=== PATIENT | female | born 1960 | race Caucasian/White ===

== ENCOUNTER 2021-08-04 10:29 | Emergency (ER) | payer SELFPAY ==
--- NOTE | 2021-08-04 10:38 | XR_ITS ---
PROCEDURE INFORMATION: Exam: XR Chest Exam date and time: 08/04/2021 10:38 AM Age: 61 years old Clinical indication: Pain; Chest pressure; Additional info: Pain in right side of chest and lung TECHNIQUE: Imaging protocol: XR of the chest. Views: 2 views. COMPARISON: No relevant prior studies available. FINDINGS: Lungs: No focal airspace disease. Pleural spaces: Unremarkable. No pleural effusion. No pneumothorax. Heart/Mediastinum: Cardiomediastinal silhouette is within normal limits. Bones/joints: Unremarkable. Organs: Cholecystectomy clips. IMPRESSION: No acute cardiopulmonary abnormality.
[2021-08-04 11:45] VITALS: BP 136/95; PULSE 93; RESP 18; TEMP 36.9; O2SAT 98; BMI 25.4
--- NOTE | 2021-08-04 12:16 | HMH.EDUTC ---
[facility] Disposition Clinical Impression: Pleurisy Disposition: Home, Self-Care Condition on Discharge: Good Instructions: Pleurisy, DI for Pleurisy Additional Instructions: Drink plenty of fluids. Take tylenol or ibuprofen for pain or fever. Take the medications as directed. Follow up with your regular doctor. GO TO THE ER FOR ANY WORSENING SYMPTOMS Don't start the oral steroids until tomorrow, since you had the shot here today. Prescriptions: methylPREDNISolone [Medrol] 4 mg PO DIRECTED 6 Days #21 packet Transmission Status: Received by [facility] Azithromycin [Z-Jamie 250mg Tab*] 250 mg PO UD DOSE PK #6 tab Transmission Status: Received by [facility] Referrals: Delgado Eisenberg MD [Primary Care Provider] - Time of Disposition: 12:56 Medical Decision Making - Medical Records Medical records reviewed: No: I reviewed the patient's medical records. - Reynaldo Inquiry Pt receiving controlled substance: No Vital Signs: 08/04/21 11:45 08/04/21 13:00 Temperature 98.4 F 98.4 F Temperature Source Oral Pulse Rate 93 H Pulse Rate [Left] 93 H Respiratory Rate 18 18 Blood Pressure 136/95 H Blood Pressure [Right Arm] 136/95 H Blood Pressure Mean [Right Arm] 108 02 Sat by Pulse Oximetry 98 Orders (Tests/Meds): ED MEDICATIONS Discontinued Medications Generic Name Dose Route Start Last Admin Trade Name Yandelq PRN Reason Stop Dose Admin Ketorolac Tromethamine 60 mg 08/04/21 12:32 08/04/21 12:41 Ketorolac 60mg/2ml Vial IM 08/04/21 12:33 60 mg ONCE ONE Administration Methylprednisolone Sodium Succinate 125 mg 08/04/21 12:32 08/04/21 12:40 Methylprednisolone Sod Succ 125mg Vial IM 08/04/21 12:33 125 mg ONCE ONE Administration [facility] HPI - General Stated complaint: rt lung pain Time Seen by Provider: 08/04/21 12:16 Mode of Arrival: Ambulatory Source of Information: Patient Limitations: No Limitations Description of Symptoms (Recalled from Triage Doc. by RN): pt c/o feels like pleurisy in my R lung. ongoing since yesterday. HEENT Symptoms (Recalled from RN notes): No Resp Symptoms (Recalled from RN notes): Yes Skin Symptoms (Recalled from RN notes): No MS Symptoms (Recalled from RN notes): No Functional Status (Recalled from RN notes): wnl - History of Present Illness Provider Complaint: She states that she has been having pain of the lower part of the right side of her chest when she breathes deep. - Related Data Home Medications Medication Instructions Recorded Confirmed estradiol 1 mg tablet 1 mg PO DAILY 08/14/19 08/14/19 fluoxetine 10 mg capsule 10 mg PO DAILY 08/14/19 08/14/19 levothyroxine 50 mcg capsule 50 mcg PO DAILY 08/14/19 08/14/19 Previous Rx's Medication Instructions Recorded Azithromycin [Z-Jamie 250mg Tab*] 250 mg PO UD DOSE PK #6 tab 08/04/21 methylPREDNISolone [Medrol] 4 mg PO DIRECTED 6 Days #21 08/04/21 packet Allergies Allergy/AdvReac Type Severity Reaction Status Date / Time MORPHINE Allergy Unknown NA-NAUSEA/V Uncoded 05/26/17 15:23 OMITING - Worker's Comp Is this a Worker's Comp case?: No [facility] History - Hepatitis A Screen Drug use history?: No High risk sexual behaviors?: No History of sexually transmitted infection?: No Currently employed?: No Childcare worker?: No Do you have indoor plumbing?: Yes Do you have electricity?: Yes Attestation statement:: This patient has been screened for Hepatitis A risk factors. I have reviewed the patient's past medical history: Yes Medical History: Reports:: Depression, Migraine Other Medical History: Reports: Thyroid Disease Other Surgeries: Yes: Cholecystectomy, Colonoscopy, Hysterectomy-Total Comment: I & D of facial abscess - Social History Smoking Status: Never smoker Alcohol Intake: never Substance Use Type: denies use Occupational Status: employed Housing: house Household Members: family - Psychiatric History
[2021-08-04 13:00] VITALS: BP 136/95; PULSE 93; RESP 18; TEMP 36.9
== END 2021-08-04 13:01 | disposition home or self-care (01) ==
PROVIDERS: Emergency Provider Nurse Practitioner Family; PCP Family Medicine
DX: R09.1 Pleurisy (principal); F33.1 Major depressive disorder, recurrent, moderate; Z79.899 Other long term (current) drug therapy
CPT/HCPCS: 71046; 96372; 99202; 99212; 99213; G0463

== ENCOUNTER → 2023-05-25 10:55 | Outpatient (CLI) | payer MEDICARE, SELFPAY ==
--- NOTE | 2023-05-25 11:07 | XR_ITS ---
FINAL REPORT CLINICAL HISTORY: BRONCHITIS COMPARISON: 08/04/2021 FINDINGS: 2 views of the chest were obtained . The heart is normal in size. The mediastinum is within normal limits. The lungs are clear. There is no pneumothorax. Osseous structures are unremarkable. IMPRESSION: No acute cardiopulmonary process. Reviewed, Interpreted and Dictated by Johnny Cee MD Transcribed by Kristie Branch Authenticated and . [facility]
== END ==
PROVIDERS: PCP Family Medicine; Visit Provider Nurse Practitioner Family
DX: J40 Bronchitis, not specified as acute or chronic (principal)
CPT/HCPCS: 71046

== ENCOUNTER 2023-06-25 19:55 | Outpatient (CLI) | payer MEDICARE, SELFPAY | END 2023-06-25 23:59 | LOC: LAB.DROPOF 19:56 | PROVIDERS: PCP Student in an Organized Health Care Education/Training Program; Visit Provider Student in an Organized Health Care Education/Training Program | DX: N39.0 Urinary tract infection, site not specified (principal); B96.1 Klebsiella pneumoniae [K. pneumoniae] as the cause of diseases classified elsewhere; B95.2 Enterococcus as the cause of diseases classified elsewhere | CPT/HCPCS: 87086 ==

== ENCOUNTER 2023-07-02 21:00 | Outpatient (CLI) | payer MEDICARE, SELFPAY ==
[2023-07-02 19:21] LABS: Basophils # 0.1 K/mm3 (0-0.2); Basophils % 1.3 % (0.1-2.0); Eosinophils # 0.3 K/mm3 (0.0-0.4); Hematocrit 40.2 % (37.0-47.0); Hemoglobin 13.4 g/dL (12.2-16.2); Lymphocytes # 1.8 K/mm3 (0.7-4.5); Lymphocytes % 21.5 % (10-50); Mean Corpuscular HGB Conc 33.3 g/dL (31.8-35.4); Mean Corpuscular Hemoglobin 30.8 pg (27.0-31.2); Mean Corpuscular Volume 92.7 fl (81-99); Mean Platelet Volume 8.9 fl (7.4-10.4); Monocytes # 0.4 K/mm3 (0.1-1.0); Monocytes % 4.6 % (1.7-9.3); Neutrophils # 5.7 K/mm3 (1.8-7.8); Neutrophils % 69.6 % (37.0-80.0); Platelet Count 307 K/mm3 (142-424); Red Blood Count 4.34 M/mm3 (4.20-5.40); Red Cell Distribution Width 13.1 % (11.5-17.5); White Blood Count 8.2 K/mm3 (4.8-10.8)
[2023-07-02 19:48] LABS: Chloride 106 mmol/L (98-107)
[2023-07-02 19:49] LABS: Potassium 4.1 mmoL/L (3.5-5.1); Sodium 135 mmol/L (136-145)
[2023-07-02 19:51] LABS: Alanine Aminotransferase 26 U/L (12-78); Albumin Level 3.8 g/dl (3.5-5.0); Alkaline Phosphatase 83 U/L (38-126); Aspartate Amino Transferase 37 U/L (14-36); Bilirubin,Total 0.6 mg/dl (0.2-1.3); Blood Urea Nitrogen 11 mg/dl (7-17); Estimated Glomerular Filt Rate 84 ml/min (>60); GFR (African American) 102 ML/MIN (>60); Globulin 2.9 g/dL (1.3-3.2); Total Protein,Serum 6.7 g/dl (6.3-8.2)
[2023-07-02 19:52] LABS: Albumin/Globulin Ratio 1.3 (1.1-1.8); Anion Gap 10.1 mEq/L (5-15); Calcium 9.3 mg/dl (8.4-10.2); Carbon Dioxide 23 mmol/L (22.0-30.0); Chol/HDL Ratio 3.9 (1-3.5); Cholesterol 232 mg/dl (140-200); Glucose 108 mg/dl (74-100); HDL Cholesterol 60 mg/dl (40-60); Triglycerides 317 mg/dl (30-150); VLDL Cholesterol 63 mg/dL (0-40)
[2023-07-02 20:05] LABS: Hemoglobin A1C 5.5 % (4.0-6.0)
[2023-07-02 20:06] LABS: Direct LDL Cholesterol 104.12 mg/dL (100-129)
[2023-07-02 20:11] LABS: 25-OH Vitamin D, Total 15.3 ng/mL (30-100)
[2023-07-02 20:24] LABS: Thyroid Stimulating Hormone 3.01 uIU/mL (0.465-4.68)
== END 2023-07-02 23:59 ==
LOC: LAB.DROPOF 21:03
PROVIDERS: PCP Student in an Organized Health Care Education/Training Program; Visit Provider Student in an Organized Health Care Education/Training Program
DX: R73.09 Other abnormal glucose (principal); E03.9 Hypothyroidism, unspecified; E55.9 Vitamin D deficiency, unspecified
CPT/HCPCS: 80053; 80061; 82306; 83036; 84443; 85025

== ENCOUNTER 2023-07-10 15:42 | Outpatient (CLI) | payer MEDICARE, SELFPAY ==
--- NOTE | 2023-07-10 15:42 | MM_ITS ---
PROCEDURE INFORMATION: Exam: MG Bilateral Screening 3D Mammography Exam date and time: 07/10/2023 3:46 PM Age: 63 years old Clinical indication: Screening examination TECHNIQUE: Imaging protocol: Bilateral Screening tomosynthesis and 2D mammography including computer-aided detection (CAD) when performed. COMPARISON: 1. MG DMSB DIG MAMM-SCREEN KLARISSA 10/12/2015 3:19 PM 2. MG DMSB DIG MAMM-SCREEN KLARISSA 10/04/2014 8:27 AM FINDINGS: MAMMOGRAPHY: Breast composition: The breasts are heterogeneously dense, which may obscure small masses. Mass: Questionable 0.6 cm mass in the anterior left upper outer quadrant Architectural distortion: None. Calcifications: No suspicious calcifications. Asymmetric density: None. Skin thickening: None. Axillary adenopathy: None. IMPRESSION: Patient to be recalled for spot compression views of the left breast in the CC and MLO projections, a full 90 degree lateral view, and left breast ultrasound for further evaluation of a left breast mass. ASSESSMENT: BI-RADS Category 0: Incomplete- Need Additional Imaging Evaluation and/or Prior Mammograms for Comparison
== END 2023-07-10 23:59 ==
LOC: RAD 15:42
PROVIDERS: PCP Student in an Organized Health Care Education/Training Program; Visit Provider Student in an Organized Health Care Education/Training Program
DX: Z12.31 Encounter for screening mammogram for malignant neoplasm of breast (principal)
CPT/HCPCS: 77063; 77067

== ENCOUNTER 2023-07-24 14:44 | Outpatient (CLI) | payer MEDICARE, SELFPAY ==
--- NOTE | 2023-07-24 14:45 | MM_ITS ---
PROCEDURE INFORMATION: Exam: US Left Breast, Complete MG Left Diagnostic Breast Tomosynthesis Exam date and time: 07/24/2023 2:30 PM Age: 63 years old Clinical indication: Patient recalled on the basis of a screening mammogram for further evaluation; Left breast; mass TECHNIQUE: Imaging protocol: Complete ultrasound of all four quadrants of the left breast and the retroareolar regions, including ultrasound of the axilla when performed. Left Diagnostic tomosynthesis and 2D mammography including computer-aided detection (CAD) when performed. Unilateral or bilateral exam. COMPARISON: 1. MG MM DIG SCREENING MAMM BI W/CAD 07/10/2023 3:46 PM 2. MG DMSB DIG MAMM-SCREEN KLARISSA 10/12/2015 3:19 PM FINDINGS: MAMMOGRAPHY: Digital diagnostic spot compression views of the breast and 90 degree lateral view of the left breast demonstrates a persistent 0.6 cm mass in the anterior lateral left breast best seen in the craniocaudal projection ULTRASOUND: Sonographic images of the left breast including the retroareolar region, all 4 quadrants and the axilla do not demonstrate any solid masses. 0.5 cm cyst in the 2 o'clock axis 4 cm from the nipple most closely corresponds to the mass on mammography. 12 o'clock retroareolar 0.4 cm cyst . Also noted in the left 12 o'clock retroareolar region 1 cm from the nipple is a vertically oriented irregularly marginated hypoechoic mass possibly reflecting a debris-filled cyst. It measures 0.3 x 0.4 x 0.4 cm in dimension. No architectural distortion or acoustical shadowing. No skin thickening or axillary adenopathy. IMPRESSION: 1. Indeterminate hypoechoic mass possibly reflecting a debris-filled cyst in the left 12 o'clock retroareolar region 1 cm from the nipple. Ultrasound-guided core biopsy is recommended for further evaluation. 2. Mass on screening mammography corresponds to underlying cystic change sonographically. ASSESSMENT: BI-RADS Category 4: Suspicious
== END 2023-07-24 23:59 ==
LOC: RAD 14:45
PROVIDERS: PCP Student in an Organized Health Care Education/Training Program; Visit Provider Student in an Organized Health Care Education/Training Program
DX: R92.8 Other abnormal and inconclusive findings on diagnostic imaging of breast (principal)
CPT/HCPCS: 76641; 77061; 77065; G0279

== ENCOUNTER 2023-07-30 08:28 | Outpatient (CLI) | payer MEDICARE, SELFPAY ==
--- NOTE | 2023-07-30 08:29 | US_ITS ---
FINAL REPORT CLINICAL HISTORY: abnormal US L breast, mass L breast FINDINGS: Left breast ultrasound-guided aspiration HISTORY: Abnormal ultrasound. Left breast nodule. TECHNIQUE: Standard written informed consent was obtained. The nodule of interest was localized in the retroareolar left breast at 12:00 is an anechoic structure measuring up to 5 mm. Left breast was prepped in routine sterile fashion locally anesthetized with 1% lidocaine. 3 passes with a 25-gauge needle were performed for FNA. Samples were submitted in fluid for normal cytologic evaluation. A 22-gauge needle was then used to decompress the nodule. No residual solid component was seen. No clip was placed. No mammogram was performed after the procedure. IMPRESSION: 1. Technically successful ultrasound guided FNA and aspiration left breast nodule 2. Nodule no longer evident following aspiration favored represent a benign cyst 3. Resume screening mammography unless cytology results reveal unexpected findings warranting additional biopsy Authenticated and [facility]
== END 2023-07-30 23:59 ==
LOC: RAD 08:29
PROVIDERS: PCP Student in an Organized Health Care Education/Training Program; Visit Provider Student in an Organized Health Care Education/Training Program
DX: N63.22 Unspecified lump in the left breast, upper inner quadrant (principal)
CPT/HCPCS: 10005; 88173

== ENCOUNTER 2023-09-14 23:12 | Outpatient (CLI) | payer MEDICARE, SELFPAY | END 2023-09-14 23:59 | LOC: LAB.DROPOF 23:12 | PROVIDERS: PCP Student in an Organized Health Care Education/Training Program; Visit Provider Student in an Organized Health Care Education/Training Program | DX: R05.9 Cough, unspecified (principal); U07.1 COVID-19 | CPT/HCPCS: 87635 ==

== ENCOUNTER 2023-09-23 14:37 | Outpatient (CLI) | payer MEDICARE, SELFPAY ==
--- NOTE | 2023-09-23 14:38 | US_ITS ---
FINAL REPORT CLINICAL HISTORY: chronic cervical LAD COMPARISON: None FINDINGS: SOFT TISSUE ULTRASOUND RIGHT NECK: Ultrasound examination of the region of interest where the patient states a mass is present that is enlarging was performed. In the region of interest which is lateral to the right ear there is a 1.3 x 0.9 ovoid smoothly marginated hypoechoic mass. This mass may represent a lymph node, but is not definitively a lymph node as there is no well-defined hilum. IMPRESSION: Examination of the region of interest reveals a 1.3 x 0.9 ovoid smoothly marginated hypoechoic mass, not definitively a lymph node. Would recommend CT of the neck with contrast for further evaluation as clinically indicated. Reviewed, Interpreted and Dictated by Johnny Cee MD Transcribed by Kathy Sanchez Authenticated and [facility]
== END 2023-09-23 23:59 | disposition home or self-care (01) ==
LOC: RAD 14:38
PROVIDERS: PCP Student in an Organized Health Care Education/Training Program; Visit Provider Student in an Organized Health Care Education/Training Program
DX: R59.0 Localized enlarged lymph nodes (principal)
CPT/HCPCS: 76536

== ENCOUNTER 2023-10-08 12:56 | Outpatient (CLI) | payer MEDICARE, SELFPAY ==
--- NOTE | 2023-10-08 12:57 | CT_ITS ---
FINAL REPORT CLINICAL HISTORY: soft tissue mass of neck, abnormal US COMPARISON: None FINDINGS: CT SOFT TISSUES NECK WITH AND WITHOUT CONTRAST: There is a subcutaneous nodule overlying the right sternocleidomastoid muscle below the level of the mastoids. This nodular mass measures 11 x 6 mm in size, and does not enhance after contrast administration, consistent with a complex cyst. No significant cervical adenopathy is noted. The nasopharynx, oropharynx, and larynx are unremarkable in appearance. The thyroid gland is unremarkable in appearance. IMPRESSION: The nodule in the region of interest in the right subcutaneous soft tissues is consistent in appearance with a complex cyst, likely a sebaceous cyst. No cervical adenopathy or other masses identified. Reviewed, Interpreted and Dictated by Robbin Lopez MD Transcribed by Kathy Sanchez Authenticated and . [facility]
[2023-10-08 13:18] LABS: Blood Urea Nitrogen 9 mg/dl (7-17); Estimated Glomerular Filt Rate 72 ml/min (>60); GFR (African American) 87 ML/MIN (>60)
[2023-10-08] MEDS: SODIUM CHLORIDE 0.9% 10ML SYR (RAD ONLY) 10 ML IV (13:35)
[2023-10-08] MEDS: IOPAMIDOL-370 (76%);100ML BOTTLE 75 ML IV (13:35)
== END 2023-10-08 23:59 | disposition home or self-care (01) ==
LOC: RAD 12:57
PROVIDERS: PCP Student in an Organized Health Care Education/Training Program; Visit Provider Student in an Organized Health Care Education/Training Program
DX: R93.89 Abnormal findings on diagnostic imaging of other specified body structures (principal); M79.89 Other specified soft tissue disorders
CPT/HCPCS: 36415; 70492; 82565; 84520; Q9967

== ENCOUNTER 2024-01-11 11:05 | Outpatient (CLI) | payer MEDICARE, SELFPAY | END 2024-01-11 23:59 | disposition home or self-care (01) | LOC: LAB.DROPOF 01-12 11:05 | PROVIDERS: PCP Student in an Organized Health Care Education/Training Program; Visit Provider Student in an Organized Health Care Education/Training Program | DX: N39.0 Urinary tract infection, site not specified (principal) | CPT/HCPCS: 87086 ==

== ENCOUNTER 2024-02-22 09:15 | Outpatient (CLI) | payer MEDICARE, SELFPAY ==
[2024-02-22 20:04] LABS: 25-OH Vitamin D, Total 33.1 ng/mL (30-100)
[2024-02-22 22:08] LABS: Cholesterol 196 mg/dl (140-200); Triglycerides 143 mg/dl (30-150); VLDL Cholesterol 29 mg/dL (0-40)
[2024-02-22 22:09] LABS: Chol/HDL Ratio 2.4 (1-3.5); HDL Cholesterol 81 mg/dl (40-60)
== END 2024-02-22 23:59 | disposition home or self-care (01) ==
LOC: LAB.DROPOF 02-23 11:03
PROVIDERS: PCP Student in an Organized Health Care Education/Training Program; Visit Provider Student in an Organized Health Care Education/Training Program
DX: E55.9 Vitamin D deficiency, unspecified (principal); E78.5 Hyperlipidemia, unspecified
CPT/HCPCS: 80061; 82306

== ENCOUNTER 2024-04-01 16:42 | Outpatient (CLI) | payer MEDICARE, SELFPAY | END 2024-04-01 23:59 | disposition home or self-care (01) | LOC: LAB.DROPOF 04-04 16:42 | PROVIDERS: PCP Student in an Organized Health Care Education/Training Program; Visit Provider Student in an Organized Health Care Education/Training Program | DX: R30.0 Dysuria (principal) | CPT/HCPCS: 87086 ==

== ENCOUNTER 2024-04-29 09:58 | Outpatient (CLI) | payer MEDICARE, SELFPAY ==
--- NOTE | 2024-04-29 10:01 | XR_ITS ---
FINAL REPORT CLINICAL HISTORY: back pain COMPARISON: None FINDINGS: THORACIC SPINE 3 views of the thoracic spine were obtained. There is no acute fracture. There is no malalignment. There is mild loss of height of the mid thoracic vertebrae. There is moderate disc space narrowing mid thoracic spine with small anterior osteophyte formation. IMPRESSION: Degenerative changes without acute process. Reviewed, Interpreted and Dictated by Johnny Cee MD Transcribed by Iza Rodriguez Authenticated and [facility]
--- NOTE | 2024-04-29 10:01 | XR_ITS ---
FINAL REPORT CLINICAL HISTORY: back pain COMPARISON: None FINDINGS: CERVICAL SPINE 3 views of the cervical spine were obtained. There is no acute fracture. There is mild reversal of the cervical lordosis centered at the C4-5 level. There is no malalignment. The vertebrae are normal in height. There is moderate disc space narrowing at C5-6 and C6-7 with small posterior osteophytes at these levels. IMPRESSION: Degenerative changes without acute process. Reviewed, Interpreted and Dictated by Johnny Cee MD Transcribed by Iza Rodriguez Authenticated and . [facility]
--- NOTE | 2024-04-29 10:01 | XR_ITS ---
FINAL REPORT CLINICAL HISTORY: R shoulder pain COMPARISON: None FINDINGS: RIGHT SHOULDER Three views demonstrate no acute fracture or dislocation. There are mild hypertrophic changes at the acromioclavicular joint. The glenohumeral joint is intact. The soft tissues are unremarkable. IMPRESSION: Degenerative changes without acute bony abnormality. Reviewed, Interpreted and Dictated by Johnny Cee MD Transcribed by Iaz Rodriguez Authenticated and [facility]
== END 2024-04-29 23:59 | disposition home or self-care (01) ==
LOC: RAD 09:59
PROVIDERS: PCP Student in an Organized Health Care Education/Training Program; Visit Provider Student in an Organized Health Care Education/Training Program
DX: M25.511 Pain in right shoulder (principal); M54.9 Dorsalgia, unspecified
CPT/HCPCS: 72040; 72072; 73030

== ENCOUNTER 2024-05-19 08:52 | Outpatient (CLI) | payer MEDICARE, SELFPAY ==
--- NOTE | 2024-05-19 09:00 | XR_ITS ---
FINAL REPORT CLINICAL HISTORY: right forearm pain FINDINGS: Right forearm Two views were obtained. There is no fracture or dislocation. The joint spaces appear normal. No soft tissue abnormality is identified. IMPRESSION: No acute process. Reviewed, Interpreted and Dictated by Pritesh Renee III, MD Transcribed by Cathryn Loving Authenticated and [facility]
== END 2024-05-19 23:59 | disposition home or self-care (01) ==
LOC: RAD 08:53
PROVIDERS: PCP Student in an Organized Health Care Education/Training Program; Visit Provider Physician Assistant
DX: M79.631 Pain in right forearm (principal)
CPT/HCPCS: 73090

== ENCOUNTER 2024-07-05 07:40 | Outpatient (CLI) | payer MEDICARE, SELFPAY ==
--- NOTE | 2024-07-05 07:58 | MR_ITS ---
FINAL REPORT CLINICAL HISTORY: neuropathy RUE, abnormal NCV RIGHT ARM NUMBNESS, TINGLING AND PAIN DOWN ARM TO 4TH AND 5TH DIGITS COMPARISON: None FINDINGS: Multi planar MR imaging was obtained of the cervical spine with and without contrast. There is abnormal decreased signal throughout the cervical discs. Disc space narrowing is particularly evident at C5-6 and C6-7. There is minimal spondylolisthesis of C5 on C6. The cervical cord demonstrates normal signal and configuration. C2-C3: There is no evidence of significant disc bulge or protrusion. There is no significant facet hypertrophy. C3-C4: There is no evidence of significant disc bulge or protrusion. There is no significant facet hypertrophy. C4-C5: Diffuse disc bulge. Moderate endplate hypertrophy. Mild spinal canal compromise. Moderate bilateral neuroforaminal narrowing. C5-C6: Moderate diffuse disc bulge. Endplate hypertrophy. Moderate spinal canal compromise and bilateral neuroforaminal narrowing. C6-C7: Moderate diffuse disc bulge. Endplate hypertrophy. Moderate bilateral neuroforaminal narrowing. C7-T1: There is no evidence of significant disc bulge or protrusion. There is no significant facet hypertrophy. There is no abnormal contrast enhancement. IMPRESSION: Diffuse disc bulges at C4-5, C5-6, and C6-7 with endplate hypertrophy and moderate bilateral neuroforaminal narrowing. Reviewed, Interpreted and Dictated by Johnny Cee MD Transcribed by Umm Herrera Authenticated and [facility]
[2024-07-05 08:03] LABS: Basophils # 0.1 K/mm3 (0-0.2); Basophils % 0.4 % (0.1-2.0); Eosinophils % 0.1 % (0.1-12.0); Hematocrit 38.9 % (37.0-47.0); Hemoglobin 12.9 g/dL (12.2-16.2); Lymphocytes # 2.9 K/mm3 (0.7-4.5); Lymphocytes % 20.9 % (10-50); Mean Corpuscular HGB Conc 33.2 g/dL (31.8-35.4); Mean Corpuscular Hemoglobin 30.1 pg (27.0-31.2); Mean Corpuscular Volume 90.7 fl (81-99); Mean Platelet Volume 9.1 fl (7.4-10.4); Monocytes # 1.2 K/mm3 (0.1-1.0); Monocytes % 8.9 % (1.7-9.3); Neutrophils # 9.6 K/mm3 (1.8-7.8); Neutrophils % 69.1 % (37.0-80.0); Platelet Count 333 K/mm3 (142-424); Red Blood Count 4.29 M/mm3 (4.20-5.40); White Blood Count 13.8 K/mm3 (4.8-10.8)
[2024-07-05 08:17] LABS: Alanine Aminotransferase 23 U/L (12-78); Albumin Level 4.2 g/dl (3.5-5.0); Albumin/Globulin Ratio 1.6 (1.1-1.8); Alkaline Phosphatase 61 U/L (38-126); Anion Gap 11.3 mEq/L (5-15); Aspartate Amino Transferase 27 U/L (14-36); Bilirubin,Total 0.3 mg/dl (0.2-1.3); Blood Urea Nitrogen 12 mg/dl (7-17); Calcium 9.3 mg/dl (8.4-10.2); Carbon Dioxide 26 mmol/L (22.0-30.0); Chloride 105 mmol/L (98-107); Chol/HDL Ratio 1.9 (1-3.5); Cholesterol 160 mg/dl (140-200); Estimated Glomerular Filt Rate 84 ml/min (>60); GFR (African American) 101 ML/MIN (>60); Globulin 2.6 g/dL (1.3-3.2); Glucose 90 mg/dl (74-100); HDL Cholesterol 86 mg/dl (40-60); Potassium 4.3 mmoL/L (3.5-5.1); Sodium 138 mmol/L (136-145); Total Protein,Serum 6.8 g/dl (6.3-8.2); Triglycerides 151 mg/dl (30-150); VLDL Cholesterol 30 mg/dL (0-40)
[2024-07-05 08:48] LABS: Thyroid Stimulating Hormone 2.87 uIU/mL (0.465-4.68)
[2024-07-05 08:51] LABS: Erythrocyte Sedimentation Rate 27 mm/hr (0-30)
[2024-07-05 09:08] LABS: 25-OH Vitamin D, Total 38.8 ng/mL (30-100)
[2024-07-05] MEDS: GADOTERIDOL INJ 20ML SYRINGE 14 ML IV (09:08)
[2024-07-05] MEDS: SODIUM CHLORIDE 0.9% 10ML SYR (RAD ONLY) 10 ML IV (09:08)
[2024-07-05 09:15] LABS: Hemoglobin A1C 5.5 % (4.0-6.0)
[2024-07-05 10:16] LABS: Hepatitis C Ab Qual. W/ RFX NEGATIVE (Negative)
[2024-07-05 11:11] LABS: HIV Combo NEGATIVE (Negative)
[2024-07-05 12:15] LABS: C-Reactive Protein 1.3 mg/L (0-4)
[2024-07-05 14:04] LABS: RPR W/RFX Titers Nonreactive (Nonreactive)
[2024-07-06 15:24] LABS: Lyme Ab CIA Negative (Negative)
== END 2024-07-05 23:59 | disposition home or self-care (01) ==
PROVIDERS: PCP Student in an Organized Health Care Education/Training Program; Visit Provider Student in an Organized Health Care Education/Training Program
DX: M54.12 Radiculopathy, cervical region (principal); R94.130 Abnormal response to nerve stimulation, unspecified; E03.9 Hypothyroidism, unspecified; E78.5 Hyperlipidemia, unspecified; E55.9 Vitamin D deficiency, unspecified
CPT/HCPCS: 36415; 72156; 80053; 80061; 82306; 83036; 84443; 85025; 85651; 86140; 86592; 86618; 86803; 87389; A9576

== ENCOUNTER 2024-07-07 11:00 | Outpatient (RCR) | payer MEDICARE, SELFPAY ==
--- NOTE | 2024-06-30 11:47 | HMH.PTOPEV ---
PT Outpatient Evaluation Rehab PT Outpatient Evaluation Start: 06/30/24 08:53 Freq: Status: Active Protocol: Document 06/30/24 08:53 ELYSE (Rec: 06/30/24 11:47 ELYSE [id number]) E-signed By Jailyn Rebollar, PT Outpatient Therapy Subjective History Subjective History Pt is a 64 y/o female who reports insidious onset of RUE pain/paresthesia ~4 months ago. Pt reports pain started in her R ring and pinky finger and gradually started to radiate up the arm to the axilla and right side of the neck. Pt reports she initially had muscle spasms around her R shoulder blade and was treated by the chiropractor for without noted improvement or worsening of symptoms. Pt states she had a cervical spine radiograph on 04/29/24 with findings of There is moderate disc space narrowing at C5-6 and C6-7 with small posterior osteophytes at these levels. Degenerative changes without acute process. Pt reports she is currently awaiting insurance approval for a cervical spine MRI. Pt reports she did have an EMG/ NCV test in May and was told she possibly had brachial plexopathy, ulnar N or median N irritation. Pt reports current symptoms of constant numbness/tingling of the R ring and pinky fingers, burning sensation that radiates down her R arm and an intermittent electric shock sensation from the right side of the neck to the shoulder blade. Pt states although paresthesia is constant it fluctuates in intensity. Pt reports pain is worse in the mornings and activity dependent. Pt reports pain is aggravated by typing at work, housework, reaching forward, lifting, looking up, and looking to the right. Pt reports her symptoms improve with resting her R arm on her head and having the R arm supported. Pt reports noted heaviness of the R arm with intermittent cold sensation, denies discoloration of the arm or hand. 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 Pt also reports she feels that her balance has worsened since onset of pain/paresthesia. Pt reports chronic history of headaches however states headaches have changed location from her entire head to the right occipital region. Pt denies fevers, n/v, or night sweats. 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 Chief Complaint Pain,Paresthesia,Weakness, Decreased Staff Electronic Warfare Officer Strength Symptom Type Sharp,Burning,Numbness, Tingling,Shooting Symptoms Relieved By Rest/Positioning,Heat,Ice Current Functional Limitations Reaching,Lifting,Housework, Dressing,Desk Work/Reading, Driving,Sleeping,Recreation Activity,Balance Symptom Description Constant but Variable Level of pain today (0-10) 3 Pain scale - at its best (0-10) 3 Pain scale - at its worst (0-10) 10 Cervical Eval Palpation Cervical Muscles R Cervical Paraspinal,R Suboccipital,R Upper Trapezius Cervical/Thoracic Palpation Findings Tenderness,Muscle Guarding Flexibility Deficits Upper Trapezius Muscle Length (R) Moderate Tightness Levaetor Scapulae Muscle Length (R) Moderate Tightness Passive Joint Mobility Cervical PIVM Dec: R C4/5 L C4/5 R C5/6 L C5/6 R C6/7 L C6/7 AROM Cervical Spine Extension Active Range of 30 Motion (degrees) Cervical Spine Flexion Active Range of 45 Motion (degrees) Cervical Spine Right Lateral Flexion 20 Active Range of Motion (degrees) Cervical Spine Left Lateral Flexion 30 Active Range of Motion (degrees) Cervical Spine Right Rotation Active 20 Range of Motion (degrees) Cervical Spine Left Rotation Active 45 Range of Motion (degrees) MMT Right Deltoid (C5) 4 Good Biceps Brachii Strength Grade 4 Good Wrist Extension Strength Grade 4 Good Triceps Brachii Strength Grade 4 Good Wrist Flexion Strength Grade 5 Normal Extensor Pollicis Longus Strength Grade 5 Normal DTR Rt Biceps 2+ Lt Biceps 2+ Rt Brachioradialis 1+ Lt Brachioradialis 2+ Rt Triceps 1+ Lt Triceps 2+ Altered Sensation Bilateral Upper extremity Dermatomes C4,C5,C6,C8,T1 Comment decreased light touch sensation R compared to L Special Test C-Spine Foraminal Compression ([place]ling) Positive Right Test C-spine Verterbral Accessory Movements Central P/A [place],Right P/A that Elicit Symptoms [place] C-Spine Foraminal Distraction Test Positive Shoulder Abduction Relief Test Positive Right Neck Disability Index Neck Disability Index Section 1: Pain Intensity The pain is moderate at the moment Section 2: Personal Care (washing, I can look after myself dressing, etc.) normally but it causes extra pain Section 3: Lifting Pain prevents me from lifting heavy weights, but I can manage light to Section 4: Reading I can read as much as I want with moderate pain in my neck Section 5: Headaches I have headaches almost all the time Section 6: Concentration I can concentrate fully when I want to with slight difficulty Section 7: Work I cannot do my usual work Section 8: Driving I can drive my car as long as I want with moderate pain in my neck Section 9: Sleeping My sleep is moderately disturbed (2-3 hrs. sleepless) Section 10: Recreation I am able to engage in most, but not all of my usual recreation NDI Score 24 Outpatient Therapy Assessment Impairments Problems/Impairmments Palpation Tenderness,Impaired Range of Motion,Impaired Strength,Impaired Driving, Impaired Lifting,Impaired Household Care,Impaired Recreational Activities, Impaired Work Activities, Impaired Desk/Computer Activities,Impaired Balance, Subjective C/O Pain,Impaired Self Care/Self Management Prognosis Rehab Potential Good Clinical Impression Consistent with Diagnosis Yes Consistent with cervical pain with radiating pain Additional details: treat and refer for cervical spine MRI to r/o cervical myelopathy Short Term Goals Number of Weeks 3 Increase Range of Motion Yes: Improve cervical AROM ext & R rot/LF by at least 5 degrees Increase Strength Yes: 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 to L Improve Tolerance to Desk/Computer Yes: report improved Activities ergonomics for desk space at work Decrease Subjective C/O Pain Yes: Improve pain at worst to 8/10 to improve overall QOL Improve Self Care/Self Management Yes Patient to be Ind w/ HEP Yes Usp Goals Number of Weeks 6 Increase Range of Motion Yes: Improve cervical AROM to WNL Increase Strength Yes: Demonstrate RUE MMT to at least 4+/5 to assist with function Improve Ability For Household Care Yes: with pain 6/10 or less Improve Tolerance to Work Activities Yes: report ability to work a full shift with pain 6/10 or less Improve Neck Disability Index Score Yes: Improve score 19 or less to improve overall QOL Decrease Subjective C/O Pain Yes: Improve pain at worst to 6/10 to improve overall QOL Outpatient Therapy Plan of Care Treatment Plan May Include Therapeutic Exercise Including Home Yes Exercise Program Manual Therapy Techniques Yes Neuromuscular Re-education Yes Therapeutic Activities to Return to Yes Previous Functional/Work Level ADL/Self Care Education Yes Mechanical Traction Yes Dry Needling Yes Thermal Modalities Yes Electrical Stimulation Yes Ultrasound/Phonophoresis Yes Iontophoresis Yes Vasopneumatic Compression Pump Yes Massage Yes Group Therapy for Medicare Yes Eval/Re-Eval Yes Frequency Times per week 2 Duration Number of Weeks 6 Addendums This patient is a candidate for social No or vocational rehab? Patient/Guardian verbally acknowledges Yes understanding of treatment program and consents to further treatment? Patient/Guardian verbally acknowledges Yes understanding of diagnosis, prognosis and goals for treatment? Eval Complexity PT Charges 84103 - Moderate Complexity Shoulder/Elbow Eval Shoulder Objective Measurements Elbow Objective Measurements PHYSICIAN CERTIFICATION: I certify the specified therapy services for Juliana Valencia are required, authorized, and reviewed every 30 days.
== END 2024-07-07 23:59 | disposition home or self-care (01) ==
LOC: PT 11:00
PROVIDERS: Visit Provider Student in an Organized Health Care Education/Training Program
DX: M54.12 Radiculopathy, cervical region (principal)
CPT/HCPCS: 97014; 97110; 97140; 97163; G0283

== ENCOUNTER 2024-07-11 15:41 | Outpatient (CLI) | payer MEDICARE, SELFPAY | END 2024-07-11 23:59 | disposition home or self-care (01) | LOC: LAB.DROPOF 07-12 10:36 | PROVIDERS: PCP Student in an Organized Health Care Education/Training Program; Visit Provider Student in an Organized Health Care Education/Training Program | DX: N39.0 Urinary tract infection, site not specified (principal); B96.89 Other specified bacterial agents as the cause of diseases classified elsewhere | CPT/HCPCS: 87077; 87086 ==

== ENCOUNTER 2024-07-21 14:10 | Outpatient (CLI) | payer MEDICARE, SELFPAY ==
--- NOTE | 2024-07-21 14:11 | MM_ITS ---
PROCEDURE INFORMATION: Exam: MG Bilateral Screening 3D Mammography Exam date and time: 07/21/2024 2:23 PM Age: 64 years old Clinical indication: Screening examination TECHNIQUE: Imaging protocol: Bilateral Screening tomosynthesis and 2D mammography including computer-aided detection (CAD) when performed. COMPARISON: 1. MG MM DIG MAMM DX UNILAT LT CAD 07/24/2023 2:30 PM 2. MG MM DIG SCREENING MAMM BI W/CAD 07/10/2023 3:46 PM FINDINGS: MAMMOGRAPHY: Breast composition: There are scattered areas of fibroglandular density. Mass: None. Architectural distortion: None. Calcifications: No suspicious calcifications. Asymmetric density: None. Skin thickening: None. Axillary adenopathy: None. IMPRESSION: No mammographic evidence of malignancy. Annual screening is recommended unless otherwise clinically indicated. ASSESSMENT: BI-RADS Category 1: Negative.
== END 2024-07-21 23:59 | disposition home or self-care (01) ==
LOC: RAD 14:11
PROVIDERS: PCP Student in an Organized Health Care Education/Training Program; Visit Provider Nurse Practitioner Family
DX: Z12.31 Encounter for screening mammogram for malignant neoplasm of breast (principal)
CPT/HCPCS: 77063; 77067

== ENCOUNTER 2024-07-22 09:00 | Outpatient (RCR) | payer MEDICARE, SELFPAY | END 2024-07-22 23:59 | disposition home or self-care (01) | LOC: PT 09:00 | PROVIDERS: Visit Provider Student in an Organized Health Care Education/Training Program | DX: M54.12 Radiculopathy, cervical region (principal) | CPT/HCPCS: 97012; 97014; 97110; G0283 ==

== ENCOUNTER 2025-01-19 09:15 | Outpatient (CLI) | payer MEDICARE, SELFPAY ==
[2025-01-19 13:10] LABS: Microscopic, Urine URINE MICROSCOPIC (MICROSCOPIC)
[2025-01-19 13:43] LABS: Hematocrit 39.2 % (37.0-47.0); Hemoglobin 12.8 g/dL (12.2-16.2); Immature Granulocytes % 0.3 %; Mean Corpuscular HGB Conc 32.7 g/dL (31.8-35.4); Mean Corpuscular Hemoglobin 29.9 pg (27.0-31.2); Mean Corpuscular Volume 91.6 fl (81-99); Nucleated Red Blood Cells % 0 %; Platelet Count 281 K/mm3 (142-424); Red Blood Count 4.28 M/mm3 (4.20-5.40); Red Cell Distribution Width-SD 41.5 fL; White Blood Count 7.6 K/mm3 (4.8-10.8)
[2025-01-19 14:00] LABS: Bilirubin,Urine Negative (Negative); Color,Urine YELLOW (Yellow); Glucose,Urine (UA) Negative (Negative); Ketones,Urine Negative (Negative); Leukocyte Esterase,Urine Negative (Negative); PH,Urine 6.5 (5.0-8.5); Protein,Urine Negative (Negative); Specific Gravity, Urine <= 1.005 (1.005-1.030); Urobilinogen,Urine 0.2 EU/dl (0.2)
[2025-01-19 14:51] LABS: Albumin Level 4.5 g/dl (3.5-5.0); Chloride 104 mmol/L (98-107); Potassium 4.3 mmoL/L (3.5-5.1); Sodium 137 mmol/L (136-145)
[2025-01-19 14:54] LABS: Alanine Aminotransferase 21 U/L (12-78); Albumin/Globulin Ratio 1.8 (1.1-1.8); Alkaline Phosphatase 79 U/L (38-126); Anion Gap 12.3 mEq/L (5-15); Aspartate Amino Transferase 34 U/L (14-36); Bilirubin,Total 0.5 mg/dl (0.2-1.3); Blood Urea Nitrogen 11 mg/dl (7-17); Carbon Dioxide 25 mmol/L (22.0-30.0); Cholesterol 183 mg/dl (140-200); Creatinine,Serum 0.70 mg/dl (0.52-1.04); Estimated Glomerular Filt Rate 84 ml/min (>60); GFR (African American) 101 ML/MIN (>60); Globulin 2.5 g/dL (1.3-3.2); Iron 95 ug/dL (37-170); Total Protein,Serum 7.0 g/dl (6.3-8.2); Triglycerides 148 mg/dl (30-150)
[2025-01-19 14:55] LABS: Calcium 9.3 mg/dl (8.4-10.2); Glucose 75 mg/dl (74-100); HDL Cholesterol 80 mg/dl (40-60)
[2025-01-19 15:05] LABS: Total Iron Binding Capacity 312 ug/dL (265-497)
[2025-01-19 15:13] LABS: 25-OH Vitamin D, Total 79.7 ng/mL (30-100)
[2025-01-19 15:14] LABS: Free T4 (Free Thyroxine) 0.93 ng/dl (0.78-2.19)
[2025-01-19 15:25] LABS: Thyroid Stimulating Hormone 4.03 uIU/mL (0.465-4.68)
[2025-01-19 15:29] LABS: Ferritin 29.2 ng/ml (11.1-264)
[2025-01-19 16:01] LABS: Vitamin B12 195 pg/mL (239-931)
[2025-01-19 19:51] LABS: Bacteria,Urine 2+ /lpf
== END 2025-01-19 23:59 | disposition home or self-care (01) ==
LOC: LAB.DROPOF 01-24 10:55
PROVIDERS: PCP Nurse Practitioner Family; Visit Provider Nurse Practitioner Family
DX: E78.2 Mixed hyperlipidemia (principal); E55.9 Vitamin D deficiency, unspecified; Z78.0 Asymptomatic menopausal state; E03.8 Other specified hypothyroidism; F32.89 Other specified depressive episodes; J45.20 Mild intermittent asthma, uncomplicated; R06.83 Snoring; H93.13 Tinnitus, bilateral; M25.551 Pain in right hip; G89.29 Other chronic pain
CPT/HCPCS: 80053; 80061; 81001; 82306; 82607; 82728; 83540; 83550; 84439; 84443; 85025; 86225; 86235; 87086

== ENCOUNTER 2025-01-20 16:12 | Outpatient (CLI) | payer MEDICARE, SELFPAY ==
[2025-01-19 13:10] LABS: Microscopic, Urine URINE MICROSCOPIC (MICROSCOPIC)
[2025-01-19 13:43] LABS: Hematocrit 39.2 % (37.0-47.0); Hemoglobin 12.8 g/dL (12.2-16.2); Immature Granulocytes % 0.3 %; Mean Corpuscular HGB Conc 32.7 g/dL (31.8-35.4); Mean Corpuscular Hemoglobin 29.9 pg (27.0-31.2); Mean Corpuscular Volume 91.6 fl (81-99); Nucleated Red Blood Cells % 0 %; Platelet Count 281 K/mm3 (142-424); Red Blood Count 4.28 M/mm3 (4.20-5.40); Red Cell Distribution Width-SD 41.5 fL; White Blood Count 7.6 K/mm3 (4.8-10.8)
[2025-01-19 14:00] LABS: Bilirubin,Urine Negative (Negative); Color,Urine YELLOW (Yellow); Glucose,Urine (UA) Negative (Negative); Ketones,Urine Negative (Negative); Leukocyte Esterase,Urine Negative (Negative); PH,Urine 6.5 (5.0-8.5); Protein,Urine Negative (Negative); Specific Gravity, Urine <= 1.005 (1.005-1.030); Urobilinogen,Urine 0.2 EU/dl (0.2)
[2025-01-19 14:51] LABS: Albumin Level 4.5 g/dl (3.5-5.0); Chloride 104 mmol/L (98-107); Potassium 4.3 mmoL/L (3.5-5.1); Sodium 137 mmol/L (136-145)
[2025-01-19 14:54] LABS: Alanine Aminotransferase 21 U/L (12-78); Albumin/Globulin Ratio 1.8 (1.1-1.8); Alkaline Phosphatase 79 U/L (38-126); Anion Gap 12.3 mEq/L (5-15); Aspartate Amino Transferase 34 U/L (14-36); Bilirubin,Total 0.5 mg/dl (0.2-1.3); Blood Urea Nitrogen 11 mg/dl (7-17); Carbon Dioxide 25 mmol/L (22.0-30.0); Cholesterol 183 mg/dl (140-200); Creatinine,Serum 0.70 mg/dl (0.52-1.04); Estimated Glomerular Filt Rate 84 ml/min (>60); GFR (African American) 101 ML/MIN (>60); Globulin 2.5 g/dL (1.3-3.2); Iron 95 ug/dL (37-170); Total Protein,Serum 7.0 g/dl (6.3-8.2); Triglycerides 148 mg/dl (30-150)
[2025-01-19 14:55] LABS: Calcium 9.3 mg/dl (8.4-10.2); Glucose 75 mg/dl (74-100); HDL Cholesterol 80 mg/dl (40-60)
[2025-01-19 15:05] LABS: Total Iron Binding Capacity 312 ug/dL (265-497)
[2025-01-19 15:13] LABS: 25-OH Vitamin D, Total 79.7 ng/mL (30-100)
[2025-01-19 15:14] LABS: Free T4 (Free Thyroxine) 0.93 ng/dl (0.78-2.19)
[2025-01-19 15:25] LABS: Thyroid Stimulating Hormone 4.03 uIU/mL (0.465-4.68)
[2025-01-19 15:29] LABS: Ferritin 29.2 ng/ml (11.1-264)
[2025-01-19 16:01] LABS: Vitamin B12 195 pg/mL (239-931)
[2025-01-19 19:51] LABS: Bacteria,Urine 2+ /lpf
--- NOTE | 2025-01-20 16:14 | XR_ITS ---
FINAL REPORT CLINICAL HISTORY: chronic right hip pain FINDINGS: Right hip THREE VIEW FINDINGS: Three views show no evidence of an acute, displaced fracture or dislocation of the visualized bony architecture. Cystic changes are seen of the lateral acetabular presumably of degenerative origin. Moderate degenerative joint disease is present. IMPRESSION: Degenerative changes. No acute bony abnormality . Authenticated and ERN
== END 2025-01-20 23:59 | disposition home or self-care (01) ==
LOC: RAD 16:12
PROVIDERS: PCP Nurse Practitioner Family; Visit Provider Nurse Practitioner Family
DX: M16.11 Unilateral primary osteoarthritis, right hip (principal); E55.9 Vitamin D deficiency, unspecified; H93.13 Tinnitus, bilateral; I10 Essential (primary) hypertension; G47.33 Obstructive sleep apnea (adult) (pediatric); E78.5 Hyperlipidemia, unspecified; E03.9 Hypothyroidism, unspecified; F32.9 Major depressive disorder, single episode, unspecified; J45.909 Unspecified asthma, uncomplicated; R41.3 Other amnesia; R53.83 Other fatigue; Z78.0 Asymptomatic menopausal state
CPT/HCPCS: 73502; 80053; 80061; 81001; 82306; 82607; 82728; 83540; 83550; 84439; 84443; 85025; 86225; 86235; 87086

== ENCOUNTER 2025-03-06 16:00 | Outpatient (RCR) | payer MEDICARE, SELFPAY ==
--- NOTE | 2025-02-20 16:51 | HMH.PTOPEV ---
PT Evaluation Rehab PT Outpatient Evaluation Start: 02/20/25 15:58 Freq: Status: Active Protocol: Document 02/20/25 15:58 BRANDEE (Rec: 02/20/25 16:51 BRANDEE [id number]) E-signed By Patrick Moreno PT Outpatient Therapy Subjective History Subjective History The pt is a 64 yof who is referred to [facility] outpatient PT with complaints of R hip pain. Pt reports that she has been dealing with this pain for approximately 5 years. Pt reports that her hip is in constant pain, describing it as an achey pain that will occasionally have a sharp/shooting pain. 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 Pt reports that her balance has also seemed to worsen in the past year. Pt reports that she had one fall in June of this year, which was caused by stepping on a dog toy. Pt denied injury. Pt also denies using an AD. Pt had an X- ray in 01/2025, which demonstrated moderate degenerative changes of the R hip. Pt reports that she is planning to see an orthopedist soon to discuss her options. PMH: Hypothyroidism, Depression, Vit D deficiency, HLD. New diagnosis of No cancer in past 12 months? Chief Complaint Pain,Stiff Symptom Type Ache,Sharp Symptoms Relieved By Heat,OTC Meds Symptoms Aggravated Standing,Physical Activity,Walking,Lifting By Prior Functional None Limitations Current Functional Lifting,Housework,Standing,Squatting,Walking,Stairs, Limitations Balance Symptom Description Constant but Variable,Activity Dependent Level of pain today 4 (0-10) Pain scale - at its 3 best (0-10) Pain scale - at its 10 worst (0-10) Hip/Knee Eval Gait Observation General Gait Pattern Antalgic Gait,Decrease Weight Bear (R),Decrease Stride Observation Lngth (L) Assistive Device Assistive Devices None / NA Palpation Tenderness right Hip Palpation Tenderness,Trigger Point Findings Hip Palpation TTP 3/4 to Gluteus medius and greater trochanter Overall Comment MMT Hip Flexion Strength 3 Fair Grade Hip Abduction 2 Poor Strength Grade Hip Adduction 2 Poor Strength Grade Hip Extension 2+ Poor+ Strength Grade Hip External 3 Fair Rotation Strength Grade Hip Internal 3 Fair Rotation Strength Grade ROM Hip External 5 Rotation Active Range of Motion ( degrees) Hip External 8 Rotation Passive Range of Motion ( degrees) Hip Internal 6 Rotation Active Range of Motion ( degrees) Hip Internal 8 Rotation Passive Range of Motion ( degrees) Hip ROM Limitations Soft Tissue Tightness,Pain,Tightness on Right Special Tests Hip Chelsie's Test Negative Right Hip Johny Test Negative Right Hip Scouring ( Positive Right Quadrant) Test Hip Trendelenburg Positive Right Test Lower Extremity Functional Index Activities Today, do you or would you have any difficulty at all with: a.Any of your usual Moderate difficulty work, housework or school activities b. Your usual Moderate difficulty hobbies, recreational or sporting activities c. Getting into or A little bit of difficulty out of the bath d. Walking between No difficulty rooms e. Putting on your A little bit of difficulty shoes or socks f. Squatting Quite a bit of difficulty g. Lifting an object No difficulty , like a bag of groceries from the floor h. Performing light A little bit of difficulty activities around your home i. Performing heavy Quite a bit of difficulty activities around your home j. Getting into or Moderate difficulty out of a car k. Walking 2 blocks Quite a bit of difficulty l. Walking a mile Extreme difficulty or unable to perform activity m. Going up or down Quite a bit of difficulty 10 stairs (about 1 flight of stairs) n. Standing for 1 Quite a bit of difficulty hour o. Sitting for 1 Quite a bit of difficulty hour p. Running on even Extreme difficulty or unable to perform activity ground q. Running on uneven Extreme difficulty or unable to perform activity ground r. Making sharp Extreme difficulty or unable to perform activity turns while running fast s. Hopping Quite a bit of difficulty t. Rolling over in A little bit of difficulty bed LEFI Score Lower Extremity 33 Functional Index Score Outpatient Therapy Assessment Impairments Problems/ Palpation Tenderness,Impaired Range of Motion,Impaired Impairmments Strength,Impaired Walking,Impaired Standing,Impaired Household Care,Impaired Stair Climbing,Impaired Squatting,Subjective C/O Pain Prognosis Rehab Potential Good Comment w HEP compliance Clinical Impression Consistent with Yes Diagnosis Additional details: R hip OA: M16.1 Gluteal tendinopathy: M76.1 PT Patient Goals PT Patient Goals PT Short Term In 4 weeks: Patient Goals 1. Patient will improve strength of R hip complex to 3+ /5 globally to improve gait mechanics, improve static/ dynamic balance and to decrease fall risk. 2. Patient will demonstrate a reduction in trigger point sensitivity to Grade 2 with manual palpation to improve comfort during activity and soft tissue mobility. 3. Patient will improve LEFS score to 42/80 to demonstrate improved functional mobility and increased independence with ADLs. 4. Patient will demonstrate improved balance by maintaining tandem stance for 30s with each foot placed forward, on an even surface, without upper extremity support to demonstrate a reduced fall risk. 5. Patient will report a 48 hour average pain of 5/10 on the numeric pain rating scale to demonstrate improvement in quality of life and increased functional capacity. 6. Pt will demonstrate HEP compliance by completing prescribed HEP 4-5x/week. 7. Pt will improve active hip IR/ER by 5 degrees each, in order to demonstrate improved ability to don/doff clothing and for improved functional mobility. PT Sand Blaster Patient In 8 weeks: Goals 1. Patient will improve strength of R hip complex to 4+ /5 globally to improve gait mechanics, improve static/ dynamic balance and to decrease fall risk. . 2. Patient will report a 48 hour average pain of 2-3/10 on the numeric pain rating scale to demonstrate improvement in quality of life and increased functional capacity. 4. Pt will be able to ascend/descend a flight of stairs with reciprocal stepping pattern and no hand rail to demonstrate improvements in home and community mobility . 5. Patient will demonstrate improved balance by performing tandem walking on an unstable surface for 10 feet without loss of balance or needed contact lens assistant to demonstrate a reduced fall risk and improved community ambulation. 6. Patient will be able to stand/walk for 1 hour at one time to demonstrate improved community ambulation for activities, such as grocery shopping. 7. Pt will perform 10 [id number] from a standard chair without upper extremity assistance to demonstrate improved in-home mobility, decreased fall risk and improved LE strength. 8. Patient will improve LEFS score to 51/80 to demonstrate improved functional mobility and increased independence with ADLs. Outpatient Therapy Plan of Care Treatment Plan May Include Therapeutic Exercise Yes Including Home Exercise Program Manual Therapy Yes Techniques Neuromuscular Re- Yes education Therapeutic Yes Activities to Return to Previous Functional/Work Level Gait Training Yes ADL/Self Care Yes Education Dry Needling Yes Thermal Modalities Yes Electrical Yes Stimulation Iontophoresis Yes Massage Yes Manual Lymphatic Yes Drainage Eval/Re-Eval Yes Frequency Times per week 2 Duration Number of Weeks 8 Addendums This patient is a No candidate for social or vocational rehab ? Patient/Guardian Yes verbally acknowledges understanding of treatment program and consents to further treatment? Patient/Guardian Yes verbally acknowledges understanding of diagnosis, prognosis and goals for treatment? Eval Complexity PT Charges 64046 - Moderate Complexity Shoulder/Elbow Eval Shoulder Objective Measurements Elbow Objective Measurements PHYSICIAN CERTIFICATION: I certify the specified therapy services for Juliana Valencia are required, authorized, and reviewed every 30 days.
== END 2025-03-06 23:59 | disposition home or self-care (01) ==
LOC: PT 16:00
PROVIDERS: PCP Nurse Practitioner Family; Visit Provider Nurse Practitioner Family
DX: M25.551 Pain in right hip (principal); G89.29 Other chronic pain
CPT/HCPCS: 97110; 97162

== ENCOUNTER → 2025-03-16 08:10 | Outpatient (CLI) | payer MEDICARE, SELFPAY | LOC: SL 08:10 | PROVIDERS: PCP Nurse Practitioner Family; Visit Provider Nurse Practitioner Family | DX: R06.83 Snoring (principal); R53.83 Other fatigue ==

== ENCOUNTER 2025-05-01 15:00 | Outpatient (RCR) | payer MEDICARE, SELFPAY | END 2025-05-01 23:59 | disposition home or self-care (01) | LOC: PT 15:00 | PROVIDERS: PCP Nurse Practitioner Family; Visit Provider Physician Assistant | DX: Z47.1 Aftercare following joint replacement surgery (principal); Z96.641 Presence of right artificial hip joint | CPT/HCPCS: 97110; 97162 ==

== ENCOUNTER 2025-05-18 09:00 | Outpatient (RCR) | payer MEDICARE, SELFPAY | END 2025-05-18 23:59 | disposition home or self-care (01) | LOC: PT 09:00 | PROVIDERS: PCP Nurse Practitioner Family; Visit Provider Physician Assistant | DX: Z47.1 Aftercare following joint replacement surgery (principal); Z96.641 Presence of right artificial hip joint | CPT/HCPCS: 97110; 97530 ==